=== PATIENT | female | born 1985 | race African-American/Black ===

== ENCOUNTER 2023-04-28 00:55 | Emergency (ER) | payer MEDICAID ==
[~2023-04-28] VITALS: Ht 167.6 cm; Wt 79.8 kg
[2023-04-28 00:55] VITALS: BP 135/80; PULSE 68; RESP 16; TEMP 98; O2SAT 97
[2023-04-28 01:05] VITALS: TEMP 98
[2023-04-28 03:23] VITALS: BP 98/54; PULSE 63; RESP 18; O2SAT 98
== END 2023-04-28 04:16 | disposition home or self-care (01) ==
LOC: MED 00:55
DX: F41.9 Anxiety disorder, unspecified (principal); R07.9 Chest pain, unspecified; F12.90 Cannabis use, unspecified, uncomplicated
CPT/HCPCS: 71045; 93005; 99283; Q0092

== ENCOUNTER 2023-06-01 12:22 | Emergency (ER) | payer MEDICAID ==
[~2023-06-01] VITALS: Ht 167.6 cm; Wt 79.8 kg
[2023-06-01 12:46] VITALS: BP 122/98; PULSE 69; RESP 20; TEMP 98.6; O2SAT 97
== END 2023-06-01 13:54 | disposition home or self-care (01) ==
LOC: MED 12:22
DX: S61.411A Laceration without foreign body of right hand, initial encounter (principal); W26.0XXA Contact with knife, initial encounter; Y93.89 Activity, other specified; Y92.89 Other specified places as the place of occurrence of the external cause; Y99.8 Other external cause status
CPT/HCPCS: 12001; 90471; 90715; 99283

== ENCOUNTER 2023-08-26 13:09 | Emergency (ER) | payer SELFPAY ==
[~2023-08-26] VITALS: Ht 167.6 cm; Wt 78.9 kg
[2023-08-26 13:45] VITALS: BP 126/69; PULSE 81; RESP 14; TEMP 97.8; O2SAT 99
== END 2023-08-26 14:30 | disposition left against medical advice (07) ==
LOC: MED 13:09
DX: R07.9 Chest pain, unspecified (principal); Z79.899 Other long term (current) drug therapy
CPT/HCPCS: 93005; 99283

== ENCOUNTER 2024-04-25 08:33 | Emergency (ER) | payer MEDICAID, OTHER | END 2024-04-25 08:39 | disposition left against medical advice (07) | LOC: MED 08:33 | DX: R30.9 Painful micturition, unspecified (principal); Z53.21 Procedure and treatment not carried out due to patient leaving prior to being seen by health care provider ==